=== PATIENT | male | born 1975 | race Two or more races ===

== ENCOUNTER 2023-01-11 11:13 | Emergency (ER) | payer OTHER ==
[~2023-01-11] VITALS: Ht 190.5 cm; Wt 109.1 kg
[2023-01-11 11:45] VITALS: BP 137/75; PULSE 71; RESP 16; TEMP 98; O2SAT 97
[2023-01-11] MEDS ORDERED: CEPH500C PO (12:07)
[2023-01-11] MEDS ORDERED: TETANUS-DIPTH-ACEL PERTUSSIS 0.5ML SYR Tdap IM ONE (12:15)
== END 2023-01-11 12:39 | disposition home or self-care (01) ==
LOC: ER 11:13
DX: S61.411A Laceration without foreign body of right hand, initial encounter (principal); Z79.899 Other long term (current) drug therapy; W26.0XXA Contact with knife, initial encounter; Y93.E9 Activity, other interior property and clothing maintenance; Y92.89 Other specified places as the place of occurrence of the external cause; Y99.8 Other external cause status
CPT/HCPCS: 12002; 90471; 90715